=== PATIENT | female | born 1960 | race Caucasian/White ===

== ENCOUNTER → 2019-07-03 08:00 | Outpatient (CLI) | payer MEDICAID ==
[2019-05-11 10:18] VITALS: BMI 36.6
--- NOTE | ~2019-07-03 | EC ---
PATIENT:RANDY OH DATE OF SERVICE: 07/03/19 SEX: F MEDICAL RECORD: [id number] DATE OF : [birth year] LOCATION:[facility] AGE OF PATIENT: 58 ADMISSION DATE: 07/03/19 REFERRING PHYSICIAN: INTERPRETING PHYSICIAN: SHEILA GÓMEZ MD ECHOCARDIOGRAM REPORT ECHO CHARGES 4 ECHO COMPLETE Date: 07/03/19 CLINICAL DIAGNOSIS: SOB H/O CAD/HTN ECHOCARDIOGRAPHIC MEASUREMENTS (adult normal given) AC root (d.<3.7cm) 3.3 cm LV Septum d (<1.2 cm> 1.2 cm Valve Excursion 1.7 cm LV Septum (systole) 1.5 cm Left Atria (s.<4.0cm> 4.3 cm LVPW d(<1.2cm) 1.2 cm RV (d.<2.3cm) 3.1 cm LVPW (sytole) 1.8 cm LV diastole(<5.6CM) 5.4 cm MV E-F(>70mm/sec) cm LV systole 3.5 cm LVOT Diameter 1.8 cm MV exc.(>10mm) cm Est.ejection fraction (50-75%) % DOPPLER: LVIT cm/sec A 65.0 cm/sec E 90.0 cm/sec LA cm/sec RVSP 24.0 mmHg LVOT 118 cm/sec AOP1/2T m/s Asc. Ao 156 cm/sec RVOT 73.0 cm/sec RA cm/sec PA 110 cm/sec AV Gradient Peak 9.7 mmHg AV Mean 5.3 mmHg AV Area 1.9 cm MV Gradient Peak 3.7 mmHg MV Mean 1.7 mmHg MV Area cm COMMENTS: OP - HC Pooling Operator: 1 KENNEDY MATHISOE Line Patroller: 1 Dr. Gómez TAPE# PACS Pericardial Effusion N DATE OF SERVICE: ECHOCARDIOGRAM FINDINGS: 1. Left ventricular chamber size is within normal limits. Left ventricular systolic function is normal. Overall ejection fraction estimated at 55%. 2. Left atrium is enlarged at 4.3 cm. Right atrium and right ventricular chamber sizes are mildly dilated. 3. Valvular structures have normal structure and motion. ECHOCARDIOGRAM REPORT [id number] RANDY OH 4. Doppler interrogation reveals mild mitral regurgitation, trace tricuspid regurgitation, no other valvular insufficiency or stenosis. Pulmonary systolic pressure is estimated at 24 mmHg. 5. No evidence of pericardial effusion or left ventricular thrombus. TRANSINT:[id number] Voice Confirmation ID: [id number] DOCUMENT ID: [id number] SHEILA GÓMEZ MD CC: [id number] DICTATION DATE: 07/04/19 1142 [employer] SUPERVISOR: 07/04/19 1435 DEP CLI 07/03/19 [place] [id number]
[~2019-07-03 08:00] MED LIST: AMOXICILLIN500 M1 PO; ASPIRIN 81 MG E81 MG PO; ATARAX 25 MG TA25 MG PO; BENTYL 20 MG TA20 MG; CARAFATE1 G; FLOVENT DISKU250 MCG INH; GABAPENTIN300 MG PO; GLUCOPHAGE1000 MG PO; HCTZ25 MG PO; IMDUR60 MG PO; LIPITOR40 MG PO; MOBIC7.5 MG PO; NITROSTAT0.4 MG SL; NORCO 7.5/325 T1 TA1 PO; PLAVIX75 MG PO; PRILOSEC20 MG PO; PROZAC20 MG PO; PYRIDIUM200 MG PO; QVAR8.7 G1 INH; RANEXA1000 MG PO; REXULTI1 MG PO; TOFRANIL25 MG PO; TOPAMAX25 MG; TOPROL XL50 MG PO; VALIUM 2 MG TAB2 MG PO; VENTOLIN/PR2 MG/5 ML; XANAX0.5 MG PO; ZOLOFT100 MG PO
== END | disposition home or self-care (01) ==
LOC: D.HCCECHO 08:00
PROVIDERS: ATTEND Internal Medicine Interventional Cardiology
DX: I25.119 Atherosclerotic heart disease of native coronary artery with unspecified angina pectoris (principal)

== ENCOUNTER → 2019-08-07 13:04 | Outpatient (CLI) | payer MEDICAID ==
[2019-05-11 10:18] VITALS: BMI 36.6
== END | disposition home or self-care (01) ==
LOC: D.US 13:04
PROVIDERS: ATTEND Nurse Practitioner
DX: I70.213 Atherosclerosis of native arteries of extremities with intermittent claudication, bilateral legs (principal)